=== PATIENT | male | born 1985 | race Caucasian/White ===

== ENCOUNTER 2016-03-01 08:47 | Day surgery (SDC) | payer OTHER ==
[~2016-03-01] VITALS: Ht 175.3 cm; Wt 64.7 kg
[2016-03-01 09:53] VITALS: Ht 175.3 cm; Wt 64.7 kg
[2016-03-01] MEDS ORDERED: GABA300C16 PO (10:01)
[2016-03-01] MEDS ORDERED: CYCL-319 PO (10:01)
[2016-03-01] MEDS ORDERED: LORA10TA3 PO (10:01)
[2016-03-01] MEDS ORDERED: FLUT9.9S NASAL (10:01)
[2016-03-01] MEDS ORDERED: OMEP40CA6 PO (10:01)
[2016-03-01 10:11] VITALS: BP 127/76; PULSE 55; RESP 17
[2016-03-01] MEDS ORDERED: PROPOFOL 40 ML ONE (10:44)
[2016-03-01] MEDS ORDERED: FENTAnyl 50 MCG/ML VIAL ONE (10:44)
[2016-03-01] MEDS ORDERED: LIDOCAINE 100 MG SYRINGE ONE (10:44)
[2016-03-01 11:35] VITALS: BP 137/84; PULSE 60; RESP 15
[2016-03-01 14:22] VITALS: BP 119/78; PULSE 73; RESP 16
--- NOTE | 2016-03-01 23:01 | GILP ---
DATE OF PROCEDURE: NAME OF PROCEDURE: Esophagogastroduodenoscopy. PREOPERATIVE DIAGNOSIS: The patient presenting with history of abdominal pain and vomiting for a pe riod of quite some time. Rule out peptic ulcer disease, gastritis, esophagitis. POSTOPERATIVE DIAGNOSES: 1. Mild antral gastritis. 2. Mild reflux esophagitis. DESCRIPTION OF PROCEDURE: After informed written consent was obtained, the patient was asked to lie on the left lateral side. Intravenous anesthesia was given by anesthesiologist, Dr. Steele. Wh en the patient became somnolent, Olympus video upper endoscope was introduced into the oropharynx, t hen into the esophagus. Several areas of erythema noted just above the GE junction indicating mild reflux esophagitis. Scope at this time was advanced into the stomach. Multiple areas of erythema n oted in the antrum indicating mild gastritis. Rest of the stomach including the lesser curvature an d the fundus appeared normal. Scope at this time was advanced into the duodenum. Entire duodenum a ppeared normal with no additional abnormalities, and scope at this time was withdrawn. As mentioned earlier, CLOtest was performed. Esophageal biopsies were obtained. Procedure was terminated. PLAN: Recommend Reglan 10 mg half an hour before each meal. Dictated By: PERLA HE/TANIA Conf#: [id number] DID#: [id number] CC: Carrizales;*EndCC*
== END 2016-03-01 12:22 | disposition home or self-care (01) ==
LOC: SDS 08:47 → GIL 08:47
PROVIDERS: ATTEND Internal Medicine Gastroenterology
DX: K29.70 Gastritis, unspecified, without bleeding (principal); K21.0 Gastro-esophageal reflux disease with esophagitis; Z88.0 Allergy status to penicillin
CPT/HCPCS: 43239; 88305; 88312; 88313; J2001; J3010; Z7610